=== PATIENT | male | born 1965 | race Caucasian/White ===

== ENCOUNTER 2017-03-06 15:44 | Emergency (ER) | payer BC ==
[~2017-03-06] VITALS: Ht 185.4 cm; Wt 94.5 kg
[~2017-03-06 15:44] MED LIST: AMBIEN 10MG10 MG PO; ASPIRIN 81M81 MG/TA2 PO; NITROSTAT0.4 MG/TAB SL; NORCO 325 MG-101 TAB PO; PLAVIX 75MG TAB75 MG PO; PROZAC40 MG PO; THERAPEUTIC VIT1 CAP PO; ZOCOR5 MG PO
[2017-03-06 15:47] VITALS: BP 152/92; TEMP 97.9
[2017-03-06 16:44] LABS: PH 5 (5-8); SQUAMOUS EPITHELIAL None Seen /hpf; URINE APPEARANCE Clear; URINE BACTERIA None Seen /hpf; URINE BILIRUBIN Negative (NEGATIVE); URINE BLOOD Negative (NEGATIVE); URINE COLOR Yellow; URINE GLUCOSE Negative (NEGATIVE); URINE KETONE Negative (NEGATIVE); URINE RBC 0-2 /hpf; URINE UROBILINOGEN Negative (NEGATIVE); URINE WBC 0-2 /hpf
[2017-03-06] MEDS ORDERED: PERCOCET 325 MG1 TA2 PO (17:06)
[2017-03-06 17:52] VITALS: PULSE 100
== END 2017-03-06 17:52 | disposition home or self-care (01) ==
LOC: COL.ER 15:44
PROVIDERS: Nurse Practitioner
DX: M54.5 Low back pain (principal); G89.29 Other chronic pain; M54.10 Radiculopathy, site unspecified; E78.5 Hyperlipidemia, unspecified; Z79.891 Long term (current) use of opiate analgesic
CPT/HCPCS: J1885; J3360

== ENCOUNTER 2017-11-29 16:00 | Outpatient (RCR) | payer BC ==
[~2017-11-29 16:00] MED LIST changes: +PERCOCET 325 MG1 TA2 PO
== END 2017-11-30 ==
LOC: WSPT
DX: M54.42 Lumbago with sciatica, left side (principal); Z98.890 Other specified postprocedural states

== ENCOUNTER 2018-01-05 13:26 | Inpatient (IN) | payer BC ==
[~2018-01-05] VITALS: Ht 182.9 cm; Wt 94.1 kg
[2018-01-05 14:08] LABS: BASO % 0.8 % (0.0-2.0); EOS # 0.1 (0.0-0.7); EOS % 1.1 % (0-4.0); GRAN # 2.9 (1.4-6.5); GRAN % 55.1 % (42.2-75.2); HEMATOCRIT 40.2 % (42.0-52.0); HEMOGLOBIN 14.3 g/dl (13.5-18.0); LYMPH # 1.9 (1.2-3.4); LYMPH % 34.7 % (20.0-51.0); MEAN CELL VOLUME 84 fl (80.0-100.0); MEAN CORPUSCULAR HEMOGLOBIN 30 pg (27.0-31.0); MEAN CORPUSCULAR HGB CONC 36 g/dl (33.0-37.0); MEAN PLATELET VOLUME 8.6 fl (7.4-10.4); MONO # 0.4 (0.1-0.6); MONO % 8.1 % (1.7-9.3); PLATELET COUNT 236 K/mm3 (130-400); RED BLOOD COUNT 4.81 M/mm3 (4.20-5.60); REDCELL DISTRIBUTION WIDTH-CV 11.6 % (11.5-14.5)
[2018-01-05 14:13] LABS: PROTHROMBIN TIME 11.1 SECONDS (9.7-12.8)
[2018-01-05 14:17] LABS: D-DIMER < 200.00 ng/mLDDu (200-230)
[2018-01-05 14:18] LABS: ALANINE AMINOTRANSFERASE 35 U/L (21-72); ALBUMIN 4.4 gm/dL (3.5-5.0); ALKALINE PHOSPHATASE 71 U/L (50-136); ANION GAP 12 mmol/L (7-16); AST,SGOT 31 U/L (15-37); BILIRUBIN,TOTAL 0.6 mg/dL (0.0-1.0); BLOOD UREA NITROGEN 15 mg/dL (9-20); CALCIUM 9.4 mg/dL (8.4-10.2); CARBON DIOXIDE 26 mmol/L (22-30); CHLORIDE 99 mmol/L (98-107); CREATININE, serum 1.04 mg/dL (0.66-1.25); GLUCOSE 91 mg/dL (74-106); LIPASE 210 U/L (23-300); POTASSIUM 4.4 mmol/L (3.4-5.0); SODIUM 137 mmol/L (137-145)
[2018-01-05 14:40] LABS: TROPONIN-I < 0.012 ng/mL (0.000-0.034)
[2018-01-05] MEDS ORDERED: ZOHYDRO ER30 MG PO (14:41)
[2018-01-05] MEDS ORDERED: LIPITOR 10MG10 MG PO (14:42)
[2018-01-05] MEDS ORDERED: ZANTAC 7575 MG PO (14:42)
[2018-01-05] MEDS ORDERED: PRILOTC PO (14:42)
[2018-01-05] MEDS ORDERED: FLOMAX 0.40.4 MG/CAP PO (14:43)
[2018-01-05] MEDS ORDERED: CYMBALTA 60MG60 MG PO (14:43)
[2018-01-05] MEDS ORDERED: MOTRIN 600600 MG/TAB PO (14:43)
[2018-01-05] MEDS ORDERED: LIDODERM 5% PATC1 EA TP (14:45)
[2018-01-05 18:12] VITALS: BP 109/71; PULSE 70; TEMP 98.1
[2018-01-05 18:24] VITALS: BP 95/46; PULSE 63
[2018-01-05 19:42] VITALS: BP 92/64; PULSE 57; TEMP 98.6
[2018-01-05 23:34] VITALS: BP 90/48; PULSE 63; TEMP 98.7
[2018-01-06] VITALS (8 sets, daily range): BP systolic 82–149; BP diastolic 47–89; PULSE 66–96; TEMP 97.5–98.9
[2018-01-06 05:53] LABS: BASO % 0.6 % (0.0-2.0); EOS # 0.1 (0.0-0.7); EOS % 2.5 % (0-4.0); GRAN # 1.8 (1.4-6.5); GRAN % 37.8 % (42.2-75.2); LYMPH # 2.4 (1.2-3.4); LYMPH % 49.1 % (20.0-51.0); MEAN CELL VOLUME 84 fl (80.0-100.0); MEAN CORPUSCULAR HEMOGLOBIN 30 pg (27.0-31.0); MEAN CORPUSCULAR HGB CONC 35 g/dl (33.0-37.0); MONO # 0.5 (0.1-0.6); MONO % 9.8 % (1.7-9.3); PLATELET COUNT 236 K/mm3 (130-400); RED BLOOD COUNT 4.36 M/mm3 (4.20-5.60); REDCELL DISTRIBUTION WIDTH-CV 11.5 % (11.5-14.5)
[2018-01-06 05:59] LABS: HEMATOCRIT 36.8 % (42.0-52.0)
[2018-01-06 06:07] LABS: CHOLESTEROL RISK RATIO 5.5
[2018-01-06 13:36] LABS: HEMATOCRIT 40.3 % (42.0-52.0); HEMOGLOBIN 14.2 g/dl (13.5-18.0); MEAN CELL VOLUME 83 fl (80.0-100.0); MEAN CORPUSCULAR HEMOGLOBIN 29 pg (27.0-31.0); MEAN CORPUSCULAR HGB CONC 35 g/dl (33.0-37.0); MEAN PLATELET VOLUME 8.6 fl (7.4-10.4); PLATELET COUNT 269 K/mm3 (130-400); RED BLOOD COUNT 4.85 M/mm3 (4.20-5.60); REDCELL DISTRIBUTION WIDTH-CV 11.5 % (11.5-14.5)
[2018-01-07] VITALS (8 sets, daily range): BP systolic 98–136; BP diastolic 54–81; PULSE 59–75; TEMP 97.2–98.1
[2018-01-07 06:55] LABS: BASO % 0.7 % (0.0-2.0); EOS # 0.1 (0.0-0.7); EOS % 1.8 % (0-4.0); GRAN # 1.9 (1.4-6.5); GRAN % 41.5 % (42.2-75.2); HEMATOCRIT 38.2 % (42.0-52.0); HEMOGLOBIN 13.5 g/dl (13.5-18.0); LYMPH # 2.1 (1.2-3.4); MEAN CELL VOLUME 85 fl (80.0-100.0); MEAN CORPUSCULAR HEMOGLOBIN 30 pg (27.0-31.0); MEAN CORPUSCULAR HGB CONC 35 g/dl (33.0-37.0); MEAN PLATELET VOLUME 9.1 fl (7.4-10.4); MONO # 0.4 (0.1-0.6); MONO % 9.6 % (1.7-9.3); PLATELET COUNT 246 K/mm3 (130-400); RED BLOOD COUNT 4.51 M/mm3 (4.20-5.60); REDCELL DISTRIBUTION WIDTH-CV 11.6 % (11.5-14.5)
[2018-01-07 07:08] LABS: CALCIUM 9.1 mg/dL (8.4-10.2); CREATININE, serum 1.05 mg/dL (0.66-1.25); POTASSIUM 4.1 mmol/L (3.4-5.0)
[2018-01-08] VITALS (8 sets, daily range): BP systolic 85–123; BP diastolic 47–80; PULSE 57–70; TEMP 97.9–98
[2018-01-08 07:32] LABS: BASO % 0.8 % (0.0-2.0); EOS # 0.1 (0.0-0.7); EOS % 2.2 % (0-4.0); GRAN % 40.4 % (42.2-75.2); HEMATOCRIT 39.7 % (42.0-52.0); HEMOGLOBIN 13.8 g/dl (13.5-18.0); LYMPH # 2.3 (1.2-3.4); LYMPH % 46.1 % (20.0-51.0); MEAN CELL VOLUME 86 fl (80.0-100.0); MEAN CORPUSCULAR HEMOGLOBIN 30 pg (27.0-31.0); MEAN CORPUSCULAR HGB CONC 35 g/dl (33.0-37.0); MEAN PLATELET VOLUME 9.1 fl (7.4-10.4); MONO # 0.5 (0.1-0.6); MONO % 10.1 % (1.7-9.3); PLATELET COUNT 253 K/mm3 (130-400); REDCELL DISTRIBUTION WIDTH-CV 11.7 % (11.5-14.5)
[2018-01-08 07:44] LABS: PROTHROMBIN TIME 11.3 SECONDS (9.7-12.8)
[2018-01-08 07:47] LABS: PARTIAL THROMBOPLASTIN TIME 32.8 SECONDS (26.0-37.0)
[2018-01-08 07:51] LABS: CALCIUM 9.2 mg/dL (8.4-10.2); CREATININE, serum 1.17 mg/dL (0.66-1.25); POTASSIUM 4.6 mmol/L (3.4-5.0)
[2018-01-08 11:51] LABS: HEMATOCRIT 42.7 % (42.0-52.0); HEMOGLOBIN 14.7 g/dl (13.5-18.0); MEAN CELL VOLUME 87 fl (80.0-100.0); MEAN CORPUSCULAR HEMOGLOBIN 30 pg (27.0-31.0); MEAN CORPUSCULAR HGB CONC 34 g/dl (33.0-37.0); MEAN PLATELET VOLUME 8.9 fl (7.4-10.4); PLATELET COUNT 279 K/mm3 (130-400); RED BLOOD COUNT 4.92 M/mm3 (4.20-5.60); REDCELL DISTRIBUTION WIDTH-CV 11.7 % (11.5-14.5)
[2018-01-08 12:01] LABS: CALCIUM 9.2 mg/dL (8.4-10.2); CREATININE, serum 1.14 mg/dL (0.66-1.25); POTASSIUM 4.5 mmol/L (3.4-5.0)
[2018-01-08] MEDS ORDERED: LIPITOR20 MG PO (12:14)
[2018-01-08] MEDS ORDERED: ASPIRIN E.C. 8181 MG PO (12:14)
[2018-01-08] MEDS ORDERED: VITAMIND3 5000 PO (12:25)
== END 2018-01-08 14:12 | disposition home or self-care (01) | DRG 287 ==
LOC: COL.ER 13:26 → MEDICAL 15:15
PROVIDERS: Emergency Medicine; Hospitalist; Internal Medicine Cardiovascular Disease
PROC: B2111ZZ Fluoroscopy of Multiple Coronary Arteries using Low Osmolar Contrast (ICD-10-PCS; principal; 2018-01-08)
DX: R07.89 Other chest pain (principal); I10 Essential (primary) hypertension; G89.28 Other chronic postprocedural pain; I25.10 Atherosclerotic heart disease of native coronary artery without angina pectoris; M54.5 Low back pain; R10.11 Right upper quadrant pain; Z79.891 Long term (current) use of opiate analgesic
CPT/HCPCS: OP; 99223-AI; 99232-AI; 99233-AI; 99239; C1769; G0378; J1644; J2250; J2405; J3010

== ENCOUNTER 2018-03-05 10:15 | Outpatient (RCR) | payer BC ==
[~2018-03-05 10:15] MED LIST changes: +ASPIRIN E.C. 8181 MG PO; +CYMBALTA 60MG60 MG PO; +FLOMAX 0.40.4 MG/CAP PO; +LIDODERM 5% PATC1 EA TP; +LIPITOR 10MG10 MG PO; +LIPITOR20 MG PO; +MOTRIN 600600 MG/TAB PO; +PRILOTC PO; +VITAMIND3 5000 PO; +ZANTAC 7575 MG PO; +ZOHYDRO ER30 MG PO
== END 2018-03-08 | disposition home or self-care (01) ==
LOC: WSPT
DX: M54.42 Lumbago with sciatica, left side (principal); G89.29 Other chronic pain

== ENCOUNTER 2018-06-11 14:00 | Outpatient (RCR) | payer BC | END 2018-06-14 | disposition home or self-care (01) | LOC: WSPT | DX: M54.42 Lumbago with sciatica, left side (principal); G89.29 Other chronic pain ==

== ENCOUNTER 2018-08-17 14:15 | Outpatient (RCR) | payer BC | END 2018-09-16 | disposition home or self-care (01) | LOC: WSPT | DX: M54.42 Lumbago with sciatica, left side (principal); G89.29 Other chronic pain ==

== ENCOUNTER 2018-09-25 19:06 | Emergency (ER) | payer BC ==
[~2018-09-25] VITALS: Ht 182.9 cm; Wt 96.4 kg
[2018-09-25 19:16] VITALS: TEMP 97.7
[2018-09-25] MEDS ORDERED: TOPROL XL 25MG25 MG PO (19:29)
[2018-09-25] MEDS ORDERED: MOBIC15 MG PO (19:29)
[2018-09-25] MEDS ORDERED: AMITRIPTYLINE H25 M1 PO (19:30)
[2018-09-25] MEDS ORDERED: CEPHALEXIN500 M1 PO (21:54)
[2018-09-25 22:02] VITALS: BP 141/99; PULSE 82
== END 2018-09-25 22:06 | disposition home or self-care (01) ==
LOC: COL.ER 19:06
DX: S51.011A Laceration without foreign body of right elbow, initial encounter (principal); S00.93XA Contusion of unspecified part of head, initial encounter; E78.5 Hyperlipidemia, unspecified; Z23 Encounter for immunization; W01.0XXA Fall on same level from slipping, tripping and stumbling without subsequent striking against object, initial encounter; Y92.009 Unspecified place in unspecified non-institutional (private) residence as the place of occurrence of the external cause

== ENCOUNTER 2019-01-17 11:37 | Inpatient (IN) | payer BC ==
[~2019-01-17] VITALS: Ht 182.9 cm; Wt 99.2 kg
[~2019-01-17 11:37] MED LIST changes: +AMITRIPTYLINE H25 M1 PO; +CEPHALEXIN500 M1 PO; +MOBIC15 MG PO; +TOPROL XL 25MG25 MG PO
[2019-01-17 12:44] LABS: BASO # 0.1 (0.0-0.2); BASO % 0.4 % (0.0-2.0); EOS % 0.1 % (0-4.0); GRAN # 11.2 (1.4-6.5); GRAN % 82.9 % (42.2-75.2); HEMATOCRIT 34.9 % (42.0-52.0); HEMOGLOBIN 12.2 g/dl (13.5-18.0); LYMPH % 7.3 % (20.0-51.0); MEAN CELL VOLUME 86 fl (80.0-100.0); MEAN CORPUSCULAR HEMOGLOBIN 30 pg (27.0-31.0); MEAN CORPUSCULAR HGB CONC 35 g/dl (33.0-37.0); MEAN PLATELET VOLUME 9.3 fl (7.4-10.4); MONO # 1.1 (0.1-0.6); MONO % 8.4 % (1.7-9.3); PLATELET COUNT 176 K/mm3 (130-400); RED BLOOD COUNT 4.07 M/mm3 (4.20-5.60); REDCELL DISTRIBUTION WIDTH-CV 11.9 % (11.5-14.5)
[2019-01-17 13:41] LABS: ALANINE AMINOTRANSFERASE 20 U/L (21-72); ALBUMIN 4.4 gm/dL (3.5-5.0); ALKALINE PHOSPHATASE 89 U/L (50-136); ANION GAP 11 mmol/L (7-16); AST,SGOT 27 U/L (15-37); BILIRUBIN,TOTAL 0.6 mg/dL (0.0-1.0); BLOOD UREA NITROGEN 10 mg/dL (9-20); CALCIUM 9.1 mg/dL (8.4-10.2); CARBON DIOXIDE 26 mmol/L (22-30); CHLORIDE 99 mmol/L (98-107); CREATININE, serum 1.09 (0.66-1.25); GLUCOSE 130 mg/dL (74-106); POTASSIUM 4.4 mmol/L (3.4-5.0); SODIUM 136 mmol/L (137-145); TOTAL PROTEIN 8.2 gm/dL (6.4-8.2)
[2019-01-17 13:50] LABS: TROPONIN-I < 0.012 ng/mL (0.000-0.035)
[2019-01-17] MEDS ORDERED: FENTANYL 25 MCG TOP (14:08)
[2019-01-17] MEDS ORDERED: BENADRYL50 MG PO (14:11)
[2019-01-17 14:33] LABS: COLLECTION METHOD CLEAN CATCH
[2019-01-17 14:38] LABS: PH 7 (5-8); SQUAMOUS EPITHELIAL None Seen /hpf; URINE APPEARANCE Clear; URINE BACTERIA None Seen /hpf; URINE BILIRUBIN Negative (NEGATIVE); URINE BLOOD Negative (NEGATIVE); URINE COLOR Yellow; URINE GLUCOSE Negative (NEGATIVE); URINE KETONE Trace (NEGATIVE); URINE LEUKOCYTE ESTERASE Negative (NEGATIVE); URINE NITRATE Negative (NEGATIVE); URINE PROTEIN(semi-quant) Negative (NEGATIVE); URINE RBC 0-2 /hpf; URINE UROBILINOGEN Negative (NEGATIVE)
--- NOTE | 2019-01-17 15:30 | NUR ---
NOTIFIED ИРИНА BAETS APRN OF HEART RATE . PT HAS BEEN STABLE @ 120 SINCE ARIVAL. NO CHANGE AT THIS TIME. DR MOORE ALSO AWARE.
--- NOTE | 2019-01-17 15:39 | NUR ---
PT TO ROOM 323 IV ABX RUNNING, PT HAS CHX PAIN OF LOW BACK. REPORT FROM ED. AT BEDSIDE. PATEINT IS A/O X3. HAS CHX PROBLEMS WITH URINATION AND DEFECATION.
[2019-01-17 16:06] VITALS: BP 132/84; PULSE 119; TEMP 99.3
[2019-01-17 16:43] VITALS: BP 149/51; PULSE 59; TEMP 97.6
--- NOTE | 2019-01-17 18:36 | NUR ---
REPORT TO GLENN RAINEY.
[2019-01-17 19:41] VITALS: BP 117/71; PULSE 104; TEMP 97.8
--- NOTE | 2019-01-17 19:45 | NUR ---
Pt. sitting up in bed with at bedside. Pt. is A&OX3, assessment complete. IV to rt. forearm patent, IV fluids infusing per orders. Pt. reported pain at a 9, gave pain meds per orders. Pt. denies further needs, call light within reach.
--- NOTE | 2019-01-17 22:51 | NUR ---
PT STATES THAT HE DOESN'T WEAR A CPAP AT HOME BECAUSE HE HAS NEVER HAD A STUDY DONE TO SEE IF HE HAS ESTHER. THEREFORE, NO CPAP OR BIPAP WILL BE GIVEN BECAUSE HE DOESN'T WEAR ONE AT HOME. PT IS FINE AND STABLE AT THIS TIME NO DISTRESS NOTED.
[2019-01-17 23:40] VITALS: BP 116/62; PULSE 104; TEMP 98.2
[2019-01-18] VITALS (7 sets, daily range): BP systolic 95–131; BP diastolic 59–77; PULSE 93–107; TEMP 97.7–99
[2019-01-18 06:19] LABS: BASO % 0.4 % (0.0-2.0); EOS # 0.1 (0.0-0.7); GRAN # 7.1 (1.4-6.5); GRAN % 75.3 % (42.2-75.2); LYMPH # 1.1 (1.2-3.4); LYMPH % 11.1 % (20.0-51.0); MEAN CELL VOLUME 86 fl (80.0-100.0); MEAN CORPUSCULAR HEMOGLOBIN 30 pg (27.0-31.0); MEAN CORPUSCULAR HGB CONC 34 g/dl (33.0-37.0); MEAN PLATELET VOLUME 9.3 fl (7.4-10.4); MONO # 1.1 (0.1-0.6); MONO % 11.6 % (1.7-9.3); PLATELET COUNT 172 K/mm3 (130-400); RED BLOOD COUNT 3.72 M/mm3 (4.20-5.60)
[2019-01-18 06:28] LABS: CALCIUM 8.6 mg/dL (8.4-10.2); CHOLESTEROL RISK RATIO 6.6; CREATININE, serum 0.91 (0.66-1.25); POTASSIUM 3.9 mmol/L (3.4-5.0)
--- NOTE | 2019-01-18 10:33 | NUR ---
Initial visit; Patient thanked [employer] Sales Representative for looking in on him and stated that his Del Castillo had visited last evening.
--- NOTE | 2019-01-18 16:03 | NUR ---
RUSS met with the patient and his Lisa to discuss a discharge plan. The pt lives in [place] with Lisa and their three children. The pt has a cane but does not need it to ambulate and he reports independence with ADLs. The pt's PCP is Dr. Sparrow and the pt receives his medications from [facility]. The pt report no difficulties obtaining his medications. The pt does not have advanced directives in the EMR and was interested in obtaining a DPOA-HC form. The pt plans to return home upon discharge. There are no additional needs at this time.
--- NOTE | 2019-01-18 19:35 | NUR ---
Pt sleeping. Easily arousable. Alert and oriented. No distress noted. Respirations even and unlabored. Lungs clear. Abodmen soft, nontender. BS+. Pt reports nonproductive cough. VSS. Pt ambulated to bathroom without difficulty. Voiding clear yellow urine. Pt states he has chronic back pain, but is "ok right now". Will remove Lidocaine patches at HS. Telemetry in place. IVF infusing. No needs noted.
--- NOTE | 2019-01-18 22:30 | NUR ---
Pt awoken to give HS medications and remove lidocaine patches x3. Pt reports pain is 7/10. PRN PO pain medication given. Pt ambulated to bathroom and back- now reporting pain 10/10. Pt requests PRN IV pain meds.
[2019-01-19] VITALS: BP 132/79; PULSE 99; TEMP 98.7
--- NOTE | 2019-01-19 00:10 | NUR ---
Pts telemetry box changed due to difficulty reading heart rhythm. New box applied. Pt is SR.
[2019-01-19 03:53] VITALS: BP 135/71; PULSE 87
--- NOTE | 2019-01-19 04:00 | NUR ---
Pt up to bathroom and back without difficulty. Pt c/o headache in addition to back pain. Pt attributes headache to his Fentanyl patch needing to be changed soon.
[2019-01-19 08:04] VITALS: BP 114/71; PULSE 97; TEMP 97.9
--- NOTE | 2019-01-19 09:00 | NUR ---
Patient alert and oriented, answers questions appropraitely. See assessment. Lungs decreased in bases, clear in upper lobes. Cough improved. No drainage or nasal discharge noted. No c/o at this time.
[2019-01-19 11:53] VITALS: BP 124/74; PULSE 84; TEMP 97.7
[2019-01-19] MEDS ORDERED: OMNICEF 300MG300 MG PO (13:16)
[2019-01-19] MEDS ORDERED: ZITHROMAX 250M250 MG PO (13:16)
--- NOTE | 2019-01-19 15:43 | NUR ---
Discharge instructions reveiwed with patient, verbalized understanding. Discharged via wheelchair to auto/home with spouse at 1520.
== END 2019-01-19 15:20 | disposition home or self-care (01) | DRG 195 ==
LOC: COL.ER 11:37 → SURG 14:26
PROVIDERS: Emergency Medicine; Physician Assistant; ADMIT Family Medicine
DX: J18.9 Pneumonia, unspecified organism (principal); I10 Essential (primary) hypertension; E78.5 Hyperlipidemia, unspecified; E86.0 Dehydration; R00.0 Tachycardia, unspecified; I25.10 Atherosclerotic heart disease of native coronary artery without angina pectoris; K21.9 Gastro-esophageal reflux disease without esophagitis; R55 Syncope and collapse; M54.5 Low back pain; R33.8 Other retention of urine; F32.9 Major depressive disorder, single episode, unspecified; F41.9 Anxiety disorder, unspecified
CPT/HCPCS: 99232-AI; 99239; J0696; J1170; J1650; J1956; J2405; J7030; Q9967

== ENCOUNTER 2019-07-12 12:59 | Outpatient (CLI) | payer BC ==
[2019-07-12] VITALS (7 sets, daily range): BP systolic 114–143; BP diastolic 78–88; PULSE 76–90; TEMP 98.3
[~2019-07-12] VITALS: Ht 182.9 cm; Wt 100.6 kg
[~2019-07-12 12:59] MED LIST changes: +BENADRYL50 MG PO; +FENTANYL 25 MCG TOP; +OMNICEF 300MG300 MG PO; +ZITHROMAX 250M250 MG PO
[2019-07-12] MEDS ORDERED: D3-5050000 IU PO (13:17)
[2019-07-12] MEDS ORDERED: PROSCAR 5MG5 MG PO (13:20)
--- NOTE | 2019-07-12 15:15 | NUR ---
Back from screedman/laborer by bryan. Report from Talya RAINEY. Bandaid to lower back CD&I. VSS
--- NOTE | 2019-07-12 16:15 | NUR ---
Discharge instructions given.
== END 2019-07-12 16:30 | disposition home or self-care (01) ==
LOC: COL.RAD 12:59
DX: M51.16 Intervertebral disc disorders with radiculopathy, lumbar region (principal); M48.061 Spinal stenosis, lumbar region without neurogenic claudication
CPT/HCPCS: Q9965